=== PATIENT | female | born 1950 | race Two or more races ===

== ENCOUNTER 2019-04-13 11:13 | Outpatient (CLI) | payer OTHER | END 2019-04-13 11:19 | disposition home or self-care (01) | LOC: SONOGRAMA 11:13 → MAMO-SONO 11:15 → SONOGRAMA 11:19 | DX: M75.102 Unspecified rotator cuff tear or rupture of left shoulder, not specified as traumatic (principal) ==

== ENCOUNTER 2021-07-03 07:05 | Day surgery (SDC) | payer OTHER | END 2021-07-03 12:05 | disposition home or self-care (01) | LOC: AMB-ENDOS 07:05 | PROVIDERS: ATTEND Internal Medicine Gastroenterology | DX: D13.1 Benign neoplasm of stomach (principal); Z20.822 Contact with and (suspected) exposure to COVID-19 ==